=== PATIENT | female | born 1950 | race Two or more races ===

== ENCOUNTER 2017-12-23 12:15 | Inpatient (IN) | payer OTHER ==
[~2017-12-23] VITALS: Ht 162.6 cm; Wt 80.3 kg
[2017-12-23] MEDS ORDERED: TOPROL XL25 MG PO (15:32)
[2017-12-29] MEDS ORDERED: AMOX-CLAV 875-1 EACH PO (11:56)
[2017-12-29] MEDS ORDERED: DOCUSATE SODIU100 MG PO (11:56)
[2017-12-29] MEDS ORDERED: PERCOCET 5-3251 EACH PO (11:56)
[2017-12-29] MEDS ORDERED: GABAPENTIN800 MG PO (11:56)
[2017-12-29] MEDS ORDERED: CLONAZEPAM1 MG PO (11:56)
== END 2017-12-29 12:50 | disposition home or self-care (01) | DRG 460 ==
LOC: O/R 12-28 05:03 → PED 12-28 05:03 → SURH 12-28 12:15 → PED 12-28 18:47
PROVIDERS: Orthopaedic Surgery Orthopaedic Surgery of the Spine
PROC: 0SG00AJ Fusion of Lumbar Vertebral Joint with Interbody Fusion Device, Posterior Approach, Anterior Column, Open Approach (ICD-10-PCS; 2017-12-28)
PROC: 0ST20ZZ Resection of Lumbar Vertebral Disc, Open Approach (ICD-10-PCS; 2017-12-28)
PROC: 07DS3ZZ Extraction of Vertebral Bone Marrow, Percutaneous Approach (ICD-10-PCS; 2017-12-28)
PROC: 0SG00A0 Fusion of Lumbar Vertebral Joint with Interbody Fusion Device, Anterior Approach, Anterior Column, Open Approach (ICD-10-PCS; principal; 2017-12-28 17:30)
DX: M48.061 Spinal stenosis, lumbar region without neurogenic claudication (principal); M51.16 Intervertebral disc disorders with radiculopathy, lumbar region; M47.817 Spondylosis without myelopathy or radiculopathy, lumbosacral region; I10 Essential (primary) hypertension

== ENCOUNTER 2018-12-01 16:07 | Outpatient (CLI) | payer OTHER ==
[~2018-12-01 16:07] MED LIST: AMOX-CLAV 875-1 EACH PO; CLONAZEPAM1 MG PO; DOCUSATE SODIU100 MG PO; GABAPENTIN800 MG PO; PERCOCET 5-3251 EACH PO; TOPROL XL25 MG PO
== END 2018-12-01 16:18 | disposition home or self-care (01) ==
LOC: RAD 16:07
DX: M51.36 Other intervertebral disc degeneration, lumbar region (principal); Z98.1 Arthrodesis status

== ENCOUNTER 2021-06-10 11:15 | Inpatient (IN) | payer OTHER ==
[~2021-06-10] VITALS: Ht 162.6 cm; Wt 86.2 kg
[2021-06-17] MEDS ORDERED: SUCRALFATE1 GM (08:06)
[2021-06-17] MEDS ORDERED: LOPRESSOR25 MG (08:06)
[2021-06-17] MEDS ORDERED: FAMOTIDINE20 MG (08:06)
[2021-06-17] MEDS ORDERED: ST. JOSEPH ASPI81 M2 (08:06)
[2021-06-17] MEDS ORDERED: OMEPRAZOLE20 MG (08:06)
[2021-06-17] MEDS ORDERED: COLACE100 MG PO (09:58)
[2021-06-17] MEDS ORDERED: PERCOCET 5-3251 EACH PO (09:58)
[2021-06-17] MEDS ORDERED: DIAZEPAM5 MG PO (09:58)
[2021-06-17] MEDS ORDERED: AMOX-CLAV 875-1 EAC1 PO (09:58)
[2021-06-17] MEDS ORDERED: MEDROLPACK PO (09:58)
[2021-06-17] MEDS ORDERED: NEURONTIN800 MG PO (09:58)
== END 2021-06-19 13:14 | disposition home or self-care (01) | DRG 455 ==
LOC: PED 06-17 04:37 → O/R 06-17 04:37 → SURH 06-17 07:00 → PED 06-17 13:17
PROVIDERS: ADMIT Orthopaedic Surgery Orthopaedic Surgery of the Spine; ATTEND Orthopaedic Surgery Orthopaedic Surgery of the Spine
PROC: 0SG10J1 Fusion of 2 or more Lumbar Vertebral Joints with Synthetic Substitute, Posterior Approach, Posterior Column, Open Approach (ICD-10-PCS; 2021-06-17)
PROC: XRGC0F3 Fusion of 2 or more Lumbar Vertebral Joints using Radiolucent Porous Interbody Fusion Device, Open Approach, New Technology Group 3 (ICD-10-PCS; 2021-06-17)
PROC: 07DR0ZZ Extraction of Iliac Bone Marrow, Open Approach (ICD-10-PCS; 2021-06-17)
PROC: XRGC0F3 Fusion of 2 or more Lumbar Vertebral Joints using Radiolucent Porous Interbody Fusion Device, Open Approach, New Technology Group 3 (ICD-10-PCS; principal; 2021-06-17 07:00)
DX: M41.56 Other secondary scoliosis, lumbar region (principal); M48.062 Spinal stenosis, lumbar region with neurogenic claudication